=== PATIENT | female | born 1975 | race Caucasian/White ===

== ENCOUNTER 2023-07-23 11:54 | Emergency (ER) | payer MEDICAID, SELFPAY ==
[2023-07-23] VITALS (12 sets, daily range): BP systolic 98–141; BP diastolic 59–89; PULSE 88–102; RESP 18–20; TEMP 36.4; O2SAT 95–100
--- NOTE | ~2023-07-23 | CT_ITS ---
EXAMINATION: CT abdomen pelvis w con DATE: 07/23/2023 17:42 INDICATION: Left upper abdominal pain. Nausea and vomiting. TECHNIQUE: Computed tomography (CT) of the abdomen and pelvis was performed without intravenous contr ast. The dose-length product was 892.91 mGy-cm. Automated exposure control and iterative reconstructi on technique were employed. COMPARISON: None. FINDINGS: There is a left breast implant. Heart size normal. There is dependent atelectasis. Heart si ze normal. Gallstones. The liver, spleen, pancreas, left adrenal gland and kidneys are unremarkable. Nonobstruct mariano bowel gas pattern. No free air or free fluid. Colonic diverticulosis without evidence for diverti culitis. No significant vascular abnormality. No lymphadenopathy. There is a small 1.5 cm right adren al nodule, most likely benign adenoma. IMPRESSION: 1. No acute abdominal abnormality. 2: Cholelithiasis. Reviewed, dictated and finalized at location A. [employer]
[2023-07-23 12:49] LABS: Basophils Percent Auto 0.4 % (0.2-1.2); Eosinophils Absolute Auto 0.1 K/mm3 (0-0.3); Eosinophils Percent Auto 1.6 % (0-4.4); Hematocrit 42.8 % (37.0-47.0); Hemoglobin 13.4 g/dL (12.0-15.0); Immature Granulocyte Absolute 0.02 K/mm3 (0.00-0.031); Immature Granulocyte Percent A 0.3 % (0-0.5); Lymphocytes Absolute Auto 2.47 K/mm3 (0.9-3.2); Lymphocytes Percent Auto 32.9 % (18.3-44.2); Mean Corpuscular HGB Conc 31.3 g/dl (32-36); Mean Corpuscular Hemoglobin 28.3 pg (26-34); Mean Corpuscular Volume 90.3 fl (80-100); Mean Platelet Volume 11.7 fl (7.4-10.4); Monocytes Absolute Auto 0.7 K/mm3 (0.1-0.6); Monocytes Percent Auto 8.9 % (2.6-8.5); Neutrophils Absolute Auto 4.2 K/mm3 (1.3-6.7); Neutrophils Percent Auto 55.9 % (45.5-73.1); Platelet Count Result 276 k/mm3 (150-375); Red Blood Count 4.74 M/mm3 (4.2-5.4); Red Cell Distribution Width 12.4 % (11.5-14.5); White Blood Count 7.5 K/mm3 (4.5-10.0)
[2023-07-23 12:58] LABS: Alanine Aminotransferase 13 U/L (6-35); Albumin Level 4.3 g/dL (3.5-5.1); Alkaline Phosphatase 82 U/L (38-126); Anion Gap 10 mmol/L (8-16); Aspartate Amino Transferase 15 U/L (14-36); Bilirubin,Total 0.3 mg/dL (0.2-1.3); Blood Urea Nitrogen 14 mg/dL (7-17); Calcium 9.1 mg/dL (8.4-10.2); Carbon Dioxide 21 mmol/L (22-30); Chloride 109 mmol/L (98-107); Estimated CRCL calculation 107 ml/min; Estimated Glomerular Filt Rate > 60; Glucose 102 mg/dL (65-110); Lipase 90 U/L (23-300); Potassium 3.8 mmol/L (3.4-5.0); Sodium 140 mmol/L (137-145)
--- NOTE | 2023-07-23 14:51 | ED.ABDPAIN ---
HPI - Abdominal Pain General Chief Complaint: Abdominal Pain Stated Complaint: abdominal pain Time Seen by Provider: 07/23/23 14:42 Source: patient Mode of arrival: ambulatory Limitations: no limitations History of Present Illness HPI narrative: Patient is a 48 y/o female who presents to the ED with c/o left-sided abdominal pain. Patient reports having pain for the past 3 weeks. Fairly constant. Occasionally radiates around to back. No significant aggravating or alleviating factors, mildly worse with laying on side. No improvement with Ibuprofen, Tylenol, heating pad. Over the past couple days, she has had multiple episodes of nausea and vomiting. Denies diarrhea, constipation, fevers, dysuria, hematuria. No hx of kidney stones/pancreatitis. Related Data Allergies Allergy/AdvReac Type Severity Reaction Status Date / Time No Known Allergies Allergy Verified 07/23/23 11:55 Review of Systems Review of Systems: CONSTITUTIONAL: Denies fever, chills, or sweats. CARDIOVASCULAR: Denies chest pain, palpitations, or edema. RESPIRATORY: Denies cough or dyspnea. GASTROINTESTINAL: See HPI. GENITOURINARY: Denies dysuria or hematuria. MUSCULOSKELETAL: See HPI All systems reviewed & are unremarkable except as noted in HPI and below [facility] Family History Family History Father Hypertension Cerebrovascular accident Other Diabetes mellitus Family history of malignant neoplasm of male breast Social History Social History Second hand tobacco smoke exposure: No Smoking end date: 08/01/01 Alcohol intake: never Exam Narrative: GENERAL: Well appearing, obese with BMI of 36.1, non-toxic, in no acute distress. HEAD: Normocephalic, atraumatic. RESPIRATORY: Airway patent, respirations nonlabored. Clear to auscultation bilaterally, no rales, rhonchi, wheezing. CARDIOVASCULAR: Regular rate and rhythm without murmurs, rubs, or gallops. ABDOMINAL: Soft, tenderness in epigastric region, RLQ, LUQ, nondistended. Normoactive BS. MUSCULOSKELETAL: Moves all extremities. No gross deformities. SKIN: Warm, dry, normal color. NEURO: A&O X3. Speech clear. Cranial nerves II-XII grossly intact. Steady gait. No ataxic movements. PSYCHIATRIC: Appropriate mood and affect. Normal interaction. Course Vital Signs Vital signs: Vital Signs Temperature 97.5 F L 07/23/23 12:01 Pulse Rate 102 H 07/23/23 12:01 Respiratory Rate 20 07/23/23 12:01 Blood Pressure 141/89 H 07/23/23 12:01 Pulse Oximetry 97 07/23/23 12:01 Oxygen Delivery Room Air 07/23/23 12:01 Temperature 97.6 F 07/23/23 18:32 Pulse Rate 88 07/23/23 18:32 Respiratory Rate 18 07/23/23 18:32 Blood Pressure 118/84 07/23/23 18:32 Pulse Oximetry 99 07/23/23 18:32 Oxygen Delivery Room Air 07/23/23 12:01 MDM - Abdominal Pain MDM Narrative Medical decision making narrative: Patient presented to ED with several week history of left-sided abdominal pain, now with nausea and vomiting. Patient borderline tachycardic upon arrival, resolved by the time of my evaluation. She does appear mildly uncomfortable. CBC unremarkable. CMP also fairly unremarkable. No significant abnormalities. Stable electrolytes, kidney function, liver function. Normal lipase. UA consistent with UTI, sent for culture. EKG without ischemic changes. Troponin negative. CT abd/pelvis without acute abnormalities. No evidence of ureterolithiasis. No surgical abnormalities. Does show cholelithiasis, which I made patient aware of. Discussed sx's of biliary colic, however do not feel this is the cause of her pain at this time. No right upper quadrant tenderness. Pain has been constant for weeks, not significantly worsened with eating. No evidence of cholecystitis. Will treat patient's UTI as pyelonephritis given presence of left upper abdominal martha
--- NOTE | 2023-07-23 15:46 | ECG_ITS ---
Measurements Intervals [place] Rate: 77 P: 42 VA: 151 QRS: 53 QRSD: 89 T: 51 QT: 361 QTc: 411 Interpretive Statements SINUS RHYTHM LOW QRS VOLTAGE IN PRECORDIAL LEADS [QRS DEFLECTION < 1.0 mV IN CHEST LEADS] NO PREVIOUS ECG AVAILABLE FOR COMPARISON Electronically Signed On 07-23-2023 19:55:50 [employer]AL [employer]RILLER by Paulette Rosario M.D.
[2023-07-23] MEDS: BELLADONNA ALK/PHENOB ELIX 10 ML, MAG HYDROX/ALUMINUM HYD/SIMETH 30 ML, LIDOCAINE HCL 2... PO (16:34)
[2023-07-23] MEDS: MORPHINE SULFATE (*CRX) 4 MG/ML INJ IV PUSH (17:03)
[2023-07-23] MEDS: ONDANSETRON INJ 4 MG/2 ML VIAL IV PUSH (17:03)
[2023-07-23 17:11] LABS: Appearance Urine Turbid (Clear); Bacteria Urine 2+ /hpf; Bilirubin Urine Negative (Negative); Color Urine Yellow (Yellow); Glucose Urine UA Negative (Negative); Ketones Urine Negative (Negative); Leukocyte Esterase Ur 3+ LEU/UL (Negative); Nitrate Urine Negative (Negative); Protein Urine Trace mg/dL (Negative); RBC Urine 0-2 /hpf (0-2); Specific Grav Ur 1.024 (1.001-1.035); Squamous Epithelial Cell Urine Moderate /hpf (Few); Urobilinogen Urine 0.2 mg/dL (<2.0); WBC Urine >100 /hpf; pH Urine 5.5 (5.0-9.0)
[2023-07-23 17:15] LABS: Add Urine Microscopic? YES
[2023-07-23 17:37] LABS: Troponin I < 0.012 ng/mL (0.000-0.034)
[2023-07-23] MEDS: SODIUM CHLORIDE 0.9% IV 1,000 ML 999 ML IV CONT (17:58)
[2023-07-23] MEDS: KETOROLAC 30 MG/ML VIAL (*BKC) IV PUSH (18:54)
== END 2023-07-23 19:40 | disposition home or self-care (01) ==
PROVIDERS: Emergency Medicine; Emergency Provider Physician Assistant
DX: N10 Acute pyelonephritis (principal)
CPT/HCPCS: 36415; 74177; 80053; 81001; 81025; 83690; 84484; 85025; 87086; 87088; 93005; 96365; 96375; 99284; A9270; J0696; J1885; J2270; J2405; J7030; Q9967

== ENCOUNTER 2024-07-05 14:56 | Emergency (ER) | payer MEDICAID, SELFPAY ==
--- NOTE | ~2024-07-05 | CT_ITS ---
CT abdomen pelvis w con Ordering provider: Doroteo Lee MD History: 49 years Female with . RLQ abdominal pain . Comparison: July 23, 2023 Technique: CT abdomen and pelvis with IV and without oral contrast. Automated exposure control and it erative reconstruction technique were employed. The dose-length product was 665.45 mGy-cm. 100 mL Omnipaque 350 was given IV. Findings: VISUALIZED LOWER CHEST: Dependent atelectatic changes. Left breast implants. UPPER ABDOMINAL ORGANS: Liver: Normal. Gallbladder: Cholelithiasis. Spleen: Normal. Stomach/duodenum: Normal. Pancreas: Normal. Adrenals: Small Right fat-containing adenoma is noted measuring 8 mm. No change from previous examina tion. Kidneys: Normal. PELVIC ORGANS: The bladder is underfilled. BOWEL AND MESENTERY: Colon: No evidence of diverticulitis.. No evidence of appendicitis. Small Bowel: Normal. No obstruction. Peritoneum/mesentery: No free air or free fluid. No mesenteric lymphadenopathy. RETROPERITONEUM: Normal aorta. No retroperitoneal lymphadenopathy. MUSCULOSKELETAL: Superficial soft tissues: The superficial soft tissues are normal. Bones: Normal spine. IMPRESSION: 1. No evidence of appendicitis, diverticulitis or intestinal obstruction. 2. Right adrenal adenoma unchanged from previous examination. 3. Cholelithiasis. Reviewed, dictated and finalized at location A. [employer]
[2024-07-05 15:26] VITALS: BP 122/88; PULSE 89; RESP 18; TEMP 36.4; O2SAT 98
--- NOTE | 2024-07-05 15:31 | ED_ITS ---
HPI - Abdominal Pain General Chief Complaint: Abdominal Pain <Leena Ramirez PA-C - Last Filed: 07/05/24 15:37> Stated Complaint: abdominal pain, diarrhea <Leena Ramirez PA-C - Last Filed: 07/05/24 15:37> Time Seen by Provider: 07/05/24 15:31 <Leena Ramirez PA-C - Last Filed: 07/05/24 15:37> Focused HPI: Patient is a 49 y/o female who presents to the ED with c/o RLQ abd pain. Patient reports pain has been present for the past 1+ year. Worsening over past couple months, but patient states she did not have insurance until now. Took Tylenol last night with some improvement. Has not taken anything for pain today. Reports intermittent N/V, diarrhea. Last BM was earlier today. Reports subjective fevers, diaphoresis. Denies urinary complaints. GENERAL: Well-appearing, well-nourished, and in no acute distress. HEAD: Normocephalic, atraumatic. CHEST: Clear to auscultation. ?No respiratory distress. HEART: Regular rate and rhythm.? ABD: Mild TTP in RLQ, diffuse tenderness throughout remainder of abdomen, normoactive BS NEURO: ?Alert and oriented x3. Patient screened in triage and initial orders placed.? ?Additional care and disposition to be based upon?diagnostic testing and treatment. <Leena Ramirez PA-C - Last Filed: 07/05/24 15:37> Source: patient <Leena Ramirez PA-C - Last Filed: 07/05/24 15:37> Mode of arrival: ambulatory <ABIGAIL Goldstein Last Filed: 07/05/24 15:37> Limitations: no limitations <Leena Ramirez PA-C - Last Filed: 07/05/24 15:37> History of Present Illness HPI narrative: I agree with the HPI as documented in the medical screening exam <Doroteo Lee MD - Last Filed: 07/06/24 00:47> Related Data Allergies/Adverse Reactions: Allergies Allergy/AdvReac Type Severity Reaction Status Date / Time No Known Allergies Allergy Verified 07/23/23 11:55 <Leena Ramirez PA-C - Last Filed: 07/05/24 15:37> Review of Systems Review of Systems: All systems reviewed & are unremarkable except as noted in HPI and below <Doroteo Lee MD - Last Filed: 07/06/24 00:47> PMFSH Past Medical History Medical History: Medical History (Updated 07/06/24 @ 00:45 by Doroteo Lee MD) No significant past medical history <Leena Ramirez PA-C - Last Filed: 07/05/24 15:37> Surgical History Surgical History: Surgical History (Updated 07/06/24 @ 00:47 by Doroteo Lee MD) History of partial hysterectomy <Leena Ramirez PA-C - Last Filed: 07/05/24 15:37> Family History Family History: Family History Father Hypertension Cerebrovascular accident Other Diabetes mellitus Family history of malignant neoplasm of male breast <Leena Ramirez PA-C - Last Filed: 07/05/24 15:37> Social History Social History: Social History Second hand tobacco smoke exposure: No Smoking end date: 08/01/01 Alcohol intake: never <Leena Ramirez PA-C - Last Filed: 07/05/24 15:37> Exam Narrative: GENERAL: Well-developed, well-nourished, and in no acute distress. HEAD: Normocephalic, atraumatic. EYES: PERRLA and EOMI. CHEST: Clear to auscultation. No respiratory distress. No wheezes rales or rhonchi HEART: Regular rate and rhythm. No murmur heard. Normal peripheral pulses. ABDOMEN: Soft, tender to palpation in the right lower quadrant without rebound or guarding, there is a small palpable mass in that it increases in size with Valsalva, nondistended, normal active bowel sounds. right CVA tenderness to palpation, no left CVA tenderness EXTREMITIES: Normal range of motion. No edema. SKIN: Warm, dry, no rash. NEURO: Alert and oriented x3. No focal deficit. Moving all 4 limbs spontaneously PSYCH: Normal mood and affect. <Doroteo Lee MD - Last Filed: 07/06/24 00:47> Course Course Emergency Course: 21:15 - CBC unremarkable. Chemistries within normal limits including a normal lipase. A CT abdomen pelvis not concerning for acute intra-abdominal process though does demonstrate an 8 mm fat containing adenoma. Urinalysis demonstrates leukocyte esterase, 21-50 rbc's and 51-100 white blood cells with calcium oxalate crystals. No stone was noted on the CT scan. I have increased suspicion for pyelonephritis versus passage of a kidney stone. will discharge with a course of oral antibiotics and pain medications with recommendation for primary care follow-up. I discussed the findings and recommendations with The patient. Discussed return and emergency precautions including signs/symptoms of acute abdomen and intractable vomiting. The patient voiced understanding and agreement with the plan. All questions answered to her satisfaction. <Doroteo Lee MD - Last Filed: 07/06/24 00:47> Vital Signs Vital signs: Vital Signs Temperature 97.5 F L 07/05/24 15:26 Pulse Rate 89 07/05/24 15:26 Respiratory Rate 18 07/05/24 15:26 Blood Pressure 122/88 07/05/24 15:26 Pulse Oximetry 98 07/05/24 15:26 Oxygen Delivery Room Air 07/05/24 15:26 Temperature 98.0 F 07/05/24 20:30 Pulse Rate 88 07/05/24 20:30 Respiratory Rate 14 07/05/24 20:30 Blood Pressure 132/78 07/05/24 20:30 Pulse Oximetry 97 07/05/24 20:30 Oxygen Delivery Room Air 07/05/24 15:26 <Leena Ramirez PA-C - Last Filed: 07/05/24 15:37> Vital Signs Temperature 97.5 F L 07/05/24 15:26 Pulse Rate 89 07/05/24 15:26 Respiratory Rate 18 07/05/24 15:26 Blood Pressure 122/88 07/05/24 15:26 Pulse Oximetry 98 07/05/24 15:26 Oxygen Delivery Room Air 07/05/24 15:26 Temperature 98.0 F 07/05/24 20:30 Pulse Rate 88 07/05/24 20:30 Respiratory Rate 14 07/05/24 20:30 Blood Pressure 132/78 07/05/24 20:30 Pulse Oximetry 97 07/05/24 20:30 Oxygen Delivery Room Air 07/05/24 15:26 <Doroteo Lee MD - Last Filed: 07/06/24 00:47> MDM - Abdominal Pain MDM Narrative Medical decision making narrative: MSE by ZAC in triage. <Leena Ramirez PA-C - Last Filed: 07/05/24 15:37> MSE by ZAC in triage. plan: Labs, imaging, pain control, reassess <Doroteo Lee MD - Last Filed: 07/06/24 00:47> Differential Diagnosis Differential diagnosis: Likely acute appendicitis, calculus of kidney, diverticulitis, gastroenteritis, pancreatitis, small bowel obstruction and other ( pyelonephritis, UTI, other) <Doroteo Lee MD - Last Filed: 07/06/24 00:47> Lab Data Result diagrams: 07/05/24 17:59 07/05/24 17:59 <Leena Ramirez PA-C - Last Filed: 07/05/24 15:37> Labs: Lab Results 07/05/24 07/05/24 Range/Units 17:59 20:52 WBC 9.5 (4.5-10.0) K/mm3 RBC 4.89 (4.2-5.4) M/mm3 Hgb 14.3 (12.0-15.0) g/dL Hct 43.0 (37.0-47.0) % MCV 87.9 (80-100) fl MCH 29.2 (26-34) pg MCHC 33.3 (32-36) g/dl RDW 12.7 (11.5-14.5) % Plt Count 260 (150-375) k/mm3 MPV 11.8 H (7.4-10.4) fl Immature Gran % (Auto) 0.3 (0-0.5) % Neut % (Auto) 63.9 (45.5-73.1) % Lymph % (Auto) 27.7 (18.3-44.2) % Eddy % (Auto) 6.8 (2.6-8.5) % Eos % (Auto) 1.1 (0-4.4) % Baso % (Auto) 0.2 (0.2-1.2) % Lymph # (Auto) 2.63 (0.9-3.2) K/mm3 Eddy # (Auto) 0.7 H (0.1-0.6) K/mm3 Eos # (Auto) 0.1 (0-0.3) K/mm3 Baso # (Auto) 0.0 (0.0-0.1) K/mm3 Abs Immat Gran (auto) 0.03 (0.00-0.031) K/mm3 Absolute Neuts (auto) 6.1 (1.3-6.7) K/mm3 Absolute Nucleated RBC 0.000 (0.0-0.012) K/mm3 Nucleated RBC % 0.0 (0.0-0.2) % Sodium 140 (137-145) mmol/L Potassium 3.7 (3.4-5.0) mmol/L Chloride 109 H (98-107) mmol/L Carbon Dioxide 26 (22-30) mmol/L Anion Gap 5 (4-12) mmol/L BUN 14 (7-17) mg/dL Creatinine 0.60 L (0.7-1.0) mg/dL Estim Creat Clear Calc 101 ml/min Estimated GFR > 60 (59 - ) Glucose 93 (65-110) mg/dL Calcium 9.2 (8.4-10.2) mg/dL Total Bilirubin 0.4 (0.2-1.3) mg/dL AST 17 (14-36) U/L ALT 13 (6-35) U/L Alkaline Phosphatase 86 (38-126) U/L Total Protein 7.0 (6.3-8.2) g/dL Albumin 4.4 (3.5-5.1) g/dL Lipase 66 (23-300) U/L Urine Color Yellow (Yellow) Urine Appearance Cloudy H (Clear) Urine pH 5.5 (5.0-9.0) Ur Specific [place] 1.030 (1.001-1.035) Urine Protein Trace (Negative) mg/dL Urine Glucose (UA) Negative (Negative) mg/dL Urine Ketones Negative (Negative) mg/dL Ur Blood (Man) Negative (Negative) Urine Nitrate Negative (Negative) Urine Bilirubin Negative (Negative) Urine Urobilinogen 0.2 (<2.0) mg/dL Add Ur Microanalysis Reviewed Leukocyte Esterase Rfl 2+ H (Negative) KANDI/UL Urine RBC 21-50 H (0-2) /hpf Urine WBC 51-100 H (0-3) /hpf Ur Squamous Epith Cells Few (Few) /hpf Calcium Oxalate Crystal Present (None) /hpf Urine Bacteria None seen /hpf Urine Casts 0-2 Urine Mucus Present /lpf <Leena Ramirez PA-C - Last Filed: 07/05/24 15:37> Lab Results 07/05/24 07/05/24 Range/Units 17:59 20:52 WBC 9.5 (4.5-10.0) K/mm3 RBC 4.89 (4.2-5.4) M/mm3 Hgb 14.3 (12.0-15.0) g/dL Hct 43.0 (37.0-47.0) % MCV 87.9 (80-100) fl MCH 29.2 (26-34) pg MCHC 33.3 (32-36) g/dl RDW 12.7 (11.5-14.5) % Plt Count 260 (150-375) k/mm3 MPV 11.8 H (7.4-10.4) fl Immature Gran % (Auto) 0.3 (0-0.5) % Neut % (Auto) 63.9 (45.5-73.1) % Lymph % (Auto) 27.7 (18.3-44.2) % Eddy % (Auto) 6.8 (2.6-8.5) % Eos % (Auto) 1.1 (0-4.4) % Baso % (Auto) 0.2 (0.2-1.2) % Lymph # (Auto) 2.63 (0.9-3.2) K/mm3 Eddy # (Auto) 0.7 H (0.1-0.6) K/mm3 Eos # (Auto) 0.1 (0-0.3) K/mm3 Baso # (Auto) 0.0 (0.0-0.1) K/mm3 Abs Immat Gran (auto) 0.03 (0.00-0.031) K/mm3 Absolute Neuts (auto) 6.1 (1.3-6.7) K/mm3 Absolute Nucleated RBC 0.000 (0.0-0.012) K/mm3 Nucleated RBC % 0.0 (0.0-0.2) % Sodium 140 (137-145) mmol/L Potassium 3.7 (3.4-5.0) mmol/L Chloride 109 H (98-107) mmol/L Carbon Dioxide 26 (22-30) mmol/L Anion Gap 5 (4-12) mmol/L BUN 14 (7-17) mg/dL Creatinine 0.60 L (0.7-1.0) mg/dL Estim Creat Clear Calc 101 ml/min Estimated GFR > 60 (59 - ) Glucose 93 (65-110) mg/dL Calcium 9.2 (8.4-10.2) mg/dL Total Bilirubin 0.4 (0.2-1.3) mg/dL AST 17 (14-36) U/L ALT 13 (6-35) U/L Alkaline Phosphatase 86 (38-126) U/L Total Protein 7.0 (6.3-8.2) g/dL Albumin 4.4 (3.5-5.1) g/dL Lipase 66 (23-300) U/L Urine Color Yellow (Yellow) Urine Appearance Cloudy H (Clear) Urine pH 5.5 (5.0-9.0) Ur Specific [place] 1.030 (1.001-1.035) Urine Protein Trace (Negative) mg/dL Urine Glucose (UA) Negative (Negative) mg/dL Urine Ketones Negative (Negative) mg/dL Ur Blood (Man) Negative (Negative) Urine Nitrate Negative (Negative) Urine Bilirubin Negative (Negative) Urine Urobilinogen 0.2 (<2.0) mg/dL Add Ur Microanalysis Reviewed Leukocyte Esterase Rfl 2+ H (Negative) KANDI/UL Urine RBC 21-50 H (0-2) /hpf Urine WBC 51-100 H (0-3) /hpf Ur Squamous Epith Cells Few (Few) /hpf Calcium Oxalate Crystal Present (None) /hpf Urine Bacteria None seen /hpf Urine Casts 0-2 Urine Mucus Present /lpf <Doroteo Lee MD - Last Filed: 07/06/24 00:47> Imaging Data Radiologist's impression: ITS Impressions Abdomen/Pelvis CT 07/05/24 19:40 IMPRESSION: 1. No evidence of appendicitis, diverticulitis or intestinal obstruction. 2. Right adrenal adenoma unchanged from previous examination. 3. Cholelithiasis. <Leena Ramirez PA-C - Last Filed: 07/05/24 15:37> ITS Impressions Abdomen/Pelvis CT 07/05/24 19:40 IMPRESSION: 1. No evidence of appendicitis, diverticulitis or intestinal obstruction. 2. Right adrenal adenoma unchanged from previous examination. 3. Cholelithiasis. <Doroteo Lee MD - Last Filed: 07/06/24 00:47> Discharge Plan Discharge Clinical Impression: Pyelonephritis <Leena Ramirez PA-C - Last Filed: 07/05/24 15:37> Patient Disposition: Home, Self-Care <Leena Ramirez PA-C - Last Filed: 07/05/24 15:37> Condition: Stable <ABIGAIL Goldstein Last Filed: 07/05/24 15:37> Instructions: Antibiotic Form, Kidney Infection (ED) <ABIGAIL Goldstein Last Filed: 07/05/24 15:37> Additional Instructions: You were seen in the emergency department. your white blood cell and red blood cell counts were within normal limits. Your liver and kidney function tests were not concerning for injury. A CT scan of the abdomen was not concerning for acute infectious process. Urinalysis shows changes consistent with a urinary tract infection. I recommend oral antibiotics, pain medications and follow-up with a primary care doctor. If you develop fevers with severe abdominal pain, persistent vomiting, loss of consciousness, or if you have other emergent concerns for life, limb, or eyesight, return to the emergency department. <Leena Ramirez PA-C - Last Filed: 07/05/24 15:37> Patient Language: Sinhala <ABIGAIL Goldstein Last Filed: 07/05/24 15:37> Prescriptions: New cefpodoxime 200 mg tablet 200 mg PO Q12H 14 Days Qty: 28 0RF Rx Instructions: must administer with a meal/food hydrocodone-acetaminophen 5-325 mg tablet 1 tablet PO Q8H PRN (Reason: pain, severe) Qty: 9 0RF No Action sulfamethoxazole-trimethoprim [Bactrim DS] 800-160 mg tablet 1 tablet PO Q12H 7 Days Qty: 14 0RF <Leena Ramirez PA-C - Last Filed: 07/05/24 15:37> Follow-up/Referrals: UNKNOWN,DOCTOR [Primary Care Provider] - <Leena Ramirze PA-C - Last Filed: 07/05/24 15:37> Time of Disposition: 21:15 <Leena Ramirez PA-C - Last Filed: 07/05/24 15:37> 21:15 <Doroteo Lee MD - Last Filed: 07/06/24 00:47>
[2024-07-05] MEDS: ACETAMINOPHEN 500 MG TABLET 1000 MG PO (17:43)
[2024-07-05] MEDS: DICYCLOMINE HCL 10 MG CAPSULE 20 MG PO (17:43)
[2024-07-05 17:44] VITALS: BP 124/77; PULSE 86; RESP 16; O2SAT 99
[2024-07-05 18:29] LABS: Basophils Percent Auto 0.2 % (0.2-1.2); Eosinophils Absolute Auto 0.1 K/mm3 (0-0.3); Eosinophils Percent Auto 1.1 % (0-4.4); Hemoglobin 14.3 g/dL (12.0-15.0); Immature Granulocyte Absolute 0.03 K/mm3 (0.00-0.031); Immature Granulocyte Percent A 0.3 % (0-0.5); Lymphocytes Absolute Auto 2.63 K/mm3 (0.9-3.2); Lymphocytes Percent Auto 27.7 % (18.3-44.2); Mean Corpuscular HGB Conc 33.3 g/dl (32-36); Mean Corpuscular Hemoglobin 29.2 pg (26-34); Mean Corpuscular Volume 87.9 fl (80-100); Mean Platelet Volume 11.8 fl (7.4-10.4); Monocytes Absolute Auto 0.7 K/mm3 (0.1-0.6); Monocytes Percent Auto 6.8 % (2.6-8.5); Neutrophils Absolute Auto 6.1 K/mm3 (1.3-6.7); Neutrophils Percent Auto 63.9 % (45.5-73.1); Platelet Count Result 260 k/mm3 (150-375); Red Blood Count 4.89 M/mm3 (4.2-5.4); Red Cell Distribution Width 12.7 % (11.5-14.5); White Blood Count 9.5 K/mm3 (4.5-10.0)
[2024-07-05 18:34] LABS: Alanine Aminotransferase 13 U/L (6-35); Albumin Level 4.4 g/dL (3.5-5.1); Alkaline Phosphatase 86 U/L (38-126); Anion Gap 5 mmol/L (4-12); Aspartate Amino Transferase 17 U/L (14-36); Bilirubin,Total 0.4 mg/dL (0.2-1.3); Blood Urea Nitrogen 14 mg/dL (7-17); Calcium 9.2 mg/dL (8.4-10.2); Carbon Dioxide 26 mmol/L (22-30); Chloride 109 mmol/L (98-107); Estimated CRCL calculation 101 ml/min; Estimated Glomerular Filt Rate > 60; Glucose 93 mg/dL (65-110); Lipase 66 U/L (23-300); Potassium 3.7 mmol/L (3.4-5.0); Sodium 140 mmol/L (137-145)
[2024-07-05 20:15] VITALS: BP 128/73; PULSE 74; RESP 14; TEMP 36.4; O2SAT 100
[2024-07-05 20:30] VITALS: BP 132/78; PULSE 88; RESP 14; TEMP 36.7; O2SAT 97
[2024-07-05] MEDS: KETOROLAC 30 MG/ML VIAL (*BKC) IV PUSH (20:55)
[2024-07-05 21:10] LABS: Add Urine Microscopic? YES; Appearance Urine Cloudy (Clear); Bacteria Urine None Seen /hpf; Bilirubin Urine Negative (Negative); Blood Urine Negative (Negative); Calcium Oxalate Crystals Urine Present /hpf; Color Urine Yellow (Yellow); Glucose Urine UA Negative (Negative); Ketones Urine Negative (Negative); Leukocyte Esterase Ur 2+ LEU/UL (Negative); Mucus Urine Present /lpf; Need Manual Microscopic Reviewed; Nitrate Urine Negative (Negative); Non Pathogenic Casts 0-2; Protein Urine Trace mg/dL (Negative); RBC Urine 21-50 /hpf (0-2); Squamous Epithelial Cell Urine Few /hpf (Few); Urobilinogen Urine 0.2 mg/dL (<2.0); WBC Urine 51-100 /hpf (0-3); pH Urine 5.5 (5.0-9.0)
== END 2024-07-05 21:20 | disposition home or self-care (01) ==
PROVIDERS: Physician Assistant; Emergency Provider Preventive Medicine Aerospace Medicine
DX: N12 Tubulo-interstitial nephritis, not specified as acute or chronic (principal); K80.20 Calculus of gallbladder without cholecystitis without obstruction; D35.01 Benign neoplasm of right adrenal gland; Z90.710 Acquired absence of both cervix and uterus
CPT/HCPCS: 36415; 74177; 80053; 81001; 83690; 85025; 87086; 96374; 99284; A9270; J1885; Q9967